=== PATIENT | male | born 2005 | race Two or more races ===

== ENCOUNTER 2023-08-17 08:20 | Emergency (ER) | payer MEDICAID, OTHER ==
[~2023-08-17] VITALS: Ht 182.9 cm; Wt 102.3 kg
[2023-08-17 09:14] LABS: Urine Bacteria NONE SEEN /hpf (None Seen); Urine Blood Negative /uL (Negative); Urine Clarity Clear (Clear); Urine Protein, UAD Negative (Negative); Urine Specific Gravity 1.009 (1.001-1.035); Urine Urobilinogen Normal (Negative); Urine WBC <1 /hpf (0 - 3); Urine pH 5.5 (5.0-8.0)
[2023-08-17 09:15] LABS: Urine Color Straw (Yellow)
[2023-08-17 12:28] VITALS: BP 132/80; PULSE 59; RESP 17; TEMP 98.2; O2SAT 98
[2023-08-17] MEDS ORDERED: LIDOCAINE 1% HCL (LOCAL ANESTH.) INJ 20ML MDV ID ONE (13:30)
[2023-08-17] MEDS ORDERED: IBUP1TAB5 PO (14:17)
[2023-08-17] MEDS ORDERED: BAC09TP TOP (14:17)
[2023-08-17] MEDS ORDERED: CEPH500C PO (14:34)
== END 2023-08-17 14:17 | disposition home or self-care (01) ==
LOC: ER 08:20
DX: L60.0 Ingrowing nail (principal)
CPT/HCPCS: 11730; 81001; 99284; J2001